=== PATIENT | male | born 1980 | race Caucasian/White ===

== ENCOUNTER 2016-09-16 12:39 | Emergency (ER) | payer MEDICAID ==
[2016-09-16] MEDS ORDERED: RABIES VACCINE (PCEC)/PF 2.5 UNIT/1 ML KIT IM ONE (13:11)
[2016-09-16] MEDS ORDERED: RABIES IMMUNE GLOBULIN INJ/PF 300 UNIT/2 ML SDV IM ONE (13:11)
[2016-09-16] MEDS ORDERED: AMOXICILLIN TR/POT CLAVULANATE 500-125 MG TAB PO ONE (13:12)
--- NOTE | 2016-09-16 13:46 | ER Document Report ---
ED Animal Bite - General Chief Complaint: Dog Bite Stated Complaint: DOG BITE Time Seen by Provider: 09/16/16 12:56 Notes: patient is a 36 year old male who presents to the ED after referral from PCP for rabies vaccine. He states he was bit by a dog he was trying to save from the water when he was boating with friends but it bit his upper lip and jumped back into the water. 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 he is requesting rabies vaccination. started on augmentin by his PCP. tetanus is utd TRAVEL OUTSIDE OF THE [place] IN LAST 30 DAYS: No - Related Data Allergies/Adverse Reactions: methylphenidate HCl [From Ritalin] Adverse Reaction (Verified 09/16/16 12:48) Past Medical History - Social History Smoking Status: Current Every Day Smoker Chew tobacco use (# tins/day): No Frequency of alcohol use: None Drug Abuse: None Family History: None Patient has suicidal ideation: No Patient has homicidal ideation: No - Past Medical History Cardiac Medical History: Denies: Hx Coronary Artery Disease, Hx Heart Attack, Hx Hypertension Pulmonary Medical History: Denies: Hx Asthma, Hx Bronchitis, Hx COPD, Hx Pneumonia Neurological Medical History: Denies: Hx Cerebrovascular Accident, Hx Seizures Renal/ Medical History: Denies: Hx Peritoneal Dialysis Musculoskeltal Medical History: Denies Hx Arthritis - Immunizations Hx Diphtheria, Pertussis, Tetanus Vaccination: Yes Review of Systems - Review of Systems Constitutional: No symptoms reported Skin: See HPI -: Yes All other systems reviewed and negative Physical Exam - Vital signs Vitals: Temp Pulse Resp BP Pulse Ox 97.9 F 86 16 123/81 99 09/16/16 12:48 09/16/16 12:48 09/16/16 12:48 09/16/16 12:48 09/16/16 12:48 - Extremities General upper extremity: Normal inspection, Nontender, Normal color, Normal ROM , Normal strength, Normal temperature General lower extremity: Normal inspection, Nontender, Normal color, Normal ROM , Normal strength, Normal temperature, Normal weight bearing - Neurological Neuro grossly intact: Yes Cognition: Normal Orientation: AAOx4 [place] Coma Scale Eye Opening: Spontaneous [place] Coma Scale Verbal: Oriented [place] Coma Scale Motor: Obeys Commands [place] Coma Scale Total: 15 Speech: Normal - Skin Skin Temperature: Warm Skin Moisture: Dry Skin Color: Ashen Skin Turgor: Elastic Skin irregularity: Laceration - left upper lip and one puncture wound of the lip. bleeding controlled Course - Re-evaluation Re-evalutation: 09/16/16 14:21 Patient is a 36-year-old male who is hemodynamic stable, no acute distress afebrile. Wounds cleaned with chloraprep at the bedside. Patient has received rabies immunoglobulin and rabies vaccine per protocol. Patient to return in 3 days according to protocol. Patient is agreeable with plan. Patient to start Augmentin and follow-up with his primary care as needed - Vital Signs Vital signs: Temp Pulse Resp BP Pulse Ox 97.9 F 86 16 123/81 99 09/16/16 12:48 09/16/16 12:48 09/16/16 12:48 09/16/16 12:48 09/16/16 12:48 Discharge - Discharge Clinical Impression: Dog bite Qualifiers: Encounter type: initial encounter Qualified Code(s): W54.0XXA - Bitten by dog, initial encounter Condition: Good Disposition: HOME, SELF-CARE Instructions: Animal Bites ([facility]), Rabies Prophyllaxis ([facility]) Additional Instructions: Be sure to follow-up on September 19 and dates as listed on your rabies vaccine sheet attached to your instructions to complete your course of vaccinations Referrals: JAHAIRA SPRAGUE DO [NO LOCAL MD] - Follow up as needed
[2016-09-16] MEDS ORDERED: KETOROLAC TROMETHAMINE INJ/PF 30 MG/1 ML SDV IM ONE (13:49)
[2016-09-16 14:39] VITALS: BP 124/82
== END 2016-09-16 14:39 | disposition home or self-care (01) ==
LOC: ER 12:39
DX: S01.551A Open bite of lip, initial encounter (principal); W54.0XXA Bitten by dog, initial encounter; Y93.19 Activity, other involving water and watercraft; Z20.3 Contact with and (suspected) exposure to rabies; F17.200 Nicotine dependence, unspecified, uncomplicated
CPT/HCPCS: 99283; 96372; 90471; 90675; 90376; J3490; J1885

== ENCOUNTER 2017-09-30 13:29 | Emergency (ER) | payer MEDICAID ==
[2017-09-30 13:42] VITALS: BP 118/87
--- NOTE | 2017-09-30 14:42 | RADIOLOGY REPORT (SQ) ---
EXAM DESCRIPTION: L SPINE WHOLE COMPLETED DATE/TIME: 09/30/2017 2:28 pm REASON FOR STUDY: lower back pain COMPARISON: None. NUMBER OF VIEWS: Five views including obliques. TECHNIQUE: AP, lateral, oblique, and sacral radiographic images acquired of the lumbar spine. LIMITATIONS: None. FINDINGS: MINERALIZATION: Normal. SEGMENTATION: Normal. No transitional anatomy. ALIGNMENT: Normal. VERTEBRAE: There is an acute anterior wedge compression fracture of the L1 vertebral body with approx imately 25% height loss of the anterior aspect of the vertebral body. No definite extension into the posterior elements is appreciated. No other acute fractures appreciated. DISCS: Preserved height. No significant osteophytes or end plate irregularity. POSTERIOR ELEMENTS: Pedicles and facets are intact. No pars defect or posterior arch defects. HARDWARE: None in the spine. PARASPINAL SOFT TISSUES: Normal. PELVIS: Intact as visualized. No fractures or worrisome bone lesions. SI joints intact. OTHER: No other significant finding. IMPRESSION: Acute anterior wedge compression fracture of L1 vertebral body with approximately 25% he ight loss of the anterior vertebral body. TECHNICAL DOCUMENTATION: JOB ID: [id number]- All Rights Reserved Reading location - IP/workstation name: [email or web address]
--- NOTE | 2017-09-30 15:12 | ER Document Report ---
ED General - General Chief Complaint: Low Back Pain Stated Complaint: LOW BACK PAIN Time Seen by Provider: 09/30/17 14:37 Notes: 37-year-old male presents emergency department complaining of back pain after jumping a trampoline park today and falling and landing wrong. Family member reports that he slammed his knee into his head. Denies numbness, tingling, weakness, loss of bowel or bladder function, difficulty walking beyond pain. Denies loss of consciousness or vomiting. Denies taking blood thinners. Rates his back pain is severe. TRAVEL OUTSIDE OF THE [place] IN LAST 30 DAYS: No - Related Data Allergies/Adverse Reactions: methylphenidate HCl [From Ritalin] Adverse Reaction (Verified 09/30/17 13:29) Past Medical History - General Information source: Patient - Social History Smoking Status: Unknown if Ever Smoked Family History: None - Past Medical History Cardiac Medical History: Denies: Hx Coronary Artery Disease, Hx Heart Attack, Hx Hypertension Pulmonary Medical History: Denies: Hx Asthma, Hx Bronchitis, Hx COPD, Hx Pneumonia Neurological Medical History: Denies: Hx Cerebrovascular Accident, Hx Seizures Renal/ Medical History: Denies: Hx Peritoneal Dialysis Musculoskeletal Medical History: Denies Hx Arthritis - Immunizations Hx Diphtheria, Pertussis, Tetanus Vaccination: Yes Review of Systems - Review of Systems Constitutional: No symptoms reported Gastrointestinal: No symptoms reported Genitourinary: No symptoms reported Musculoskeletal: See HPI, Back pain Neurological/Psychological: No symptoms reported Physical Exam - Vital signs Vitals: Temp Pulse Resp BP Pulse Ox 97.5 F 91 20 118/87 H 100 09/30/17 13:41 09/30/17 13:41 09/30/17 13:41 09/30/17 13:41 09/30/17 13:41 Interpretation: Normal - Notes Notes: GENERAL: Awake, lying his right-hand side in the bed, appears quite annoyed. HEAD: Normocephalic, atraumatic EYES: Pupils equal, round. ENT: Oral mucosa moist. NECK: trachea midline. LUNGS: no respiratory distress. NEUROLOGICAL: Alert, normal speech, no facial droop. PSYCH: Angry. Refused further examination, refused to allow me to examine his spine. Course - Re-evaluation Re-evalutation: 09/30/17 15:17 Patient initially seen by nurse practitioner Michelle Franco, refused most of the examination for her as well, states that he feels he has been mistreated here and that he is in danger of he states here any longer because he was allowed to sit first in a wheelchair and then he laid himself down on the floor in the internal waiting room until room was available. Ms. Franco did order lumbar spine films which revealed a 25% loss of height of the L1 vertebrae, anterior compression fracture wedge type. Ms. Franco informed me that the patient was quite angry and was refusing to see her anymore, at this point I went in and attempted to speak with the patient , explained to him exactly what the compression fracture movement, asked for permission to examine him which he refused. Patient refused to give me any further history, patient demanded to be transferred to another hospital within the next 20 minutes which I explained them would not be possible. I told him that I could either call another hospital to try and arrange transfer but it was very unlikely that we would have an ambulance here to transport him within the next 20 minutes or I could continue his evaluation and treatment or he could choose to leave without completing his evaluation and be seen in another hospital if he wanted. I did offer the patient pain medication in the form of Percocet and Robaxin to help control the pain from this fracture and to facilitate the rest of examination. Patient states that he does not want to accept anything at all from this hospital including any narcotics or any other medications that could make it possible to "misconstrue anything that I say". Various family members asked him to stay and either should or arrange his transfer however the patient stated that he was "going to [facility] out of this hospital in the next few minutes" and he did not have to stay here any longer. I told the patient that I would complete his discharge instructions and include referrals to appropriate resources including orthospine and Dr. Luis Perez from pain management who could perhaps perform a kyphoplasty although it is rarely performed for a 25% loss of height. Patient then left without his discharge instructions. - Vital Signs Vital signs: Temp Pulse Resp BP Pulse Ox 97.5 F 91 20 118/87 H 100 09/30/17 13:41 09/30/17 13:41 09/30/17 13:41 09/30/17 13:41 09/30/17 13:41 Discharge - Discharge Clinical Impression: Closed compression fracture of L1 lumbar vertebra Qualifiers: Encounter type: initial encounter Qualified Code(s): S32.010A - Wedge compression fracture of first lumbar vertebra, initial encounter for closed fracture Condition: Stable Disposition: HOME, SELF-CARE Additional Instructions: Compression Fracture of the Spine A vertebra within your spine has been crushed. This is called a "compression fracture." Typically, this type of injury is caused by a sudden bending or compressing force such as an auto accident or a fall. Although painful, the fracture is not serious. You can expect to recover fully within a few weeks. The treatment of this fracture is essentially the same as for a severe back strain. Muscle relaxers or antiinflammatory medication may be prescribed. You should rest in bed for a few days until the pain eases, then begin light activity. A re-check will determine when you are ready to resume work or sports. Ice pack the painful area at first. After you are active again, you may want to apply gentle heat intermittently to relax sore muscles. You can continue with ice packs if you find them helpful in reducing muscle pain. Call the doctor or return at once if you develop radiating pains, muscle weakness, problems with the bladder or bowels, or numbness. Referrals: LUIS PEREZ MD [ACTIVE STAFF] - Follow up as needed
== END 2017-09-30 15:21 | disposition home or self-care (01) ==
LOC: ER 13:29
DX: S32.010A Wedge compression fracture of first lumbar vertebra, initial encounter for closed fracture (principal); X58.XXXA Exposure to other specified factors, initial encounter; Y93.44 Activity, trampolining; Y92.838 Other recreation area as the place of occurrence of the external cause
CPT/HCPCS: 72110; 99284

== ENCOUNTER 2018-02-23 11:41 | Observation (INO) | payer SELFPAY ==
[2018-02-23] MEDS ORDERED: HYDROMORPHONE HCL INJ/PF 2 MG/ML AMPULE IV ONE ×2 (12:27→14:27)
--- NOTE | 2018-02-23 12:34 | ER Document Report ---
ED Extremity Problem, Lower - General Mode of Arrival: Medic Information source: Patient TRAVEL OUTSIDE OF THE [place] IN LAST 30 DAYS: No - General Chief Complaint: Leg Injury Stated Complaint: LEG DEFORMITY Time Seen by Provider: 02/23/18 12:18 Notes: Patient is a 37-year-old male who presents with injury and deformity to his left lower extremity. Patient reports that he tripped over a tree, landing into a ditch when a another large tree limb fell and pain to his left leg. Patient was given a total of 200 mcg of fentanyl by EMS. Pulses motor and sensation are intact. (JAVIER RICHARDS) Upon arrival to the ED the patient was screaming in pain, pain was severe to the left leg, constant and throbbing. Injury occurred about 15-20 minutes prior to ED arrival. (CONCHA CASTELLANOS) - Related Data Allergies/Adverse Reactions: methylphenidate HCl [From Ritalin] Adverse Reaction (Verified 09/30/17 13:29) Past Medical History - General Information source: Patient - Social History Smoking Status: Never Smoker Chew tobacco use (# tins/day): No Frequency of alcohol use: None Drug Abuse: Marijuana Family History: None Patient has suicidal ideation: No Patient has homicidal ideation: No - Medical History Medical History: Negative - Past Medical History Cardiac Medical History: Denies: Hx Coronary Artery Disease, Hx Heart Attack, Hx Hypertension Pulmonary Medical History: Denies: Hx Asthma, Hx Bronchitis, Hx COPD, Hx Pneumonia Neurological Medical History: Denies: Hx Cerebrovascular Accident, Hx Seizures Renal/ Medical History: Denies: Hx Peritoneal Dialysis Musculoskeletal Medical History: Denies Hx Arthritis Surgical Hx: Negative - Immunizations Hx Diphtheria, Pertussis, Tetanus Vaccination: Yes Review of Systems - Review of Systems Musculoskeletal: Deformity - LLE, Leg swelling Physical Exam - Vital signs Vitals: Temp Pulse Resp BP Pulse Ox 97.9 F 59 L 18 113/68 99 02/23/18 11:50 02/23/18 11:50 02/23/18 11:50 02/23/18 11:50 02/23/18 11:50 - Notes Notes: PHYSICAL EXAMINATION: GENERAL: Well-appearing, well-nourished and in moderate distress. HEAD: Atraumatic, normocephalic. EYES: Pupils equal round and reactive to light, extraocular movements intact, sclera anicteric, conjunctiva are normal. ENT: Nares patent, oropharynx clear without exudates. Moist mucous membranes. NECK: Normal range of motion, supple without lymphadenopathy LUNGS: Breath sounds clear to auscultation bilaterally and equal. No wheezes rales or rhonchi. HEART: Regular rate and rhythm without murmurs ABDOMEN: Soft, nontender, nondistended abdomen. No guarding, no rebound. No masses appreciated. Musculoskeletal: Normal range of motion, no pitting or edema. No cyanosis. Obvious deformity noted to left lower extremity. Dorsalis pedis pulse present distal to injury, normal cap refill, normal motor and sensation distal to injury. Splint in place. NEUROLOGICAL: Cranial nerves grossly intact. Normal speech, normal gait. Normal sensory, motor exams PSYCH: Normal mood, normal affect. SKIN: Warm, Dry, normal turgor, no rashes or lesions noted. (JAVIER RICHARDS) Course - Re-evaluation Re-evalutation: X-ray reveals a transverse comminuted and slightly displaced fracture of the mid tibia and fibular diaphysis. Additional fracture noted to the distal tibial diaphysis. Patient medicated with IV Dilaudid. Normal pulses sensation and motor distal to injury. Will consult orthopedic surgeon for admission. 02/23/18 12:37 Called and spoke with Dr. Martinez, orthopedist who agrees to admit patient to his service. Patient has spouse updated on plan of care. Patient reports pain is tolerable now after administration of Dilaudid 1 mg IV. Pulses motor and sensation remain intact. Splint remains intact. (JAIVER RICHARDS) - Vital Signs Vital signs: Temp Pulse Resp BP Pulse Ox 98.5 F 80 14 145/85 H 95 02/24/18 09:53 02/24/18 10:38 02/24/18 10:38 02/24/18 10:38 02/24/18 10:38 Discharge - Discharge Admitting Provider: Orthopedics, Dr. Martinez Unit Admitted: Medical Floor - Discharge Clinical Impression: Tibia fracture Qualifiers: Encounter type: initial encounter Tibia location: shaft Fracture type: closed Fracture morphology: segmental Fracture alignment: nondisplaced Laterality: left Qualified Code(s): S82.265A - Nondisplaced segmental fracture of shaft of left tibia, initial encounter for closed fracture Fibula fracture Qualifiers: Encounter type: initial encounter Fibula location: shaft Fracture type: closed Fracture morphology: segmental Fracture alignment: displaced Laterality: left Qualified Code(s): S82.462A - Displaced segmental fracture of shaft of left fibula, initial encounter for closed fracture Condition: Stable Disposition: ADMITTED INPATIENT
--- NOTE | 2018-02-23 12:52 | RADIOLOGY REPORT (SQ) ---
EXAM DESCRIPTION: TIBIA FIBULA LEFT COMPLETED DATE/TIME: 02/23/2018 12:27 pm REASON FOR STUDY: obvious deformity COMPARISON: None. NUMBER OF VIEWS: Two views. TECHNIQUE: Two radiographic images acquired of the left tibia and fibula to include the knee and ank le in at least one projection. LIMITATIONS: None. FINDINGS: MINERALIZATION: Normal. BONES: There are transverse, comminuted and slightly fractures of the mid tibial and fibular diaphyse s. There are additional fracture components of the distal tibial diaphysis. SOFT TISSUES: No obvious swelling or foreign body. OTHER: No other significant finding. IMPRESSION: There are transverse, comminuted and slightly fractures of the mid left tibial and fibul ar diaphyses. There are additional fracture components of the distal tibial diaphysis. TECHNICAL DOCUMENTATION: JOB ID: [id number] [employer]- All Rights Reserved Reading location - IP/workstation name: [email or web address]
--- NOTE | 2018-02-23 13:17 | RADIOLOGY REPORT (SQ) ---
EXAM DESCRIPTION: ANKLE LEFT COMPLETE COMPLETED DATE/TIME: 02/23/2018 1:06 pm REASON FOR STUDY: pain s/p fall COMPARISON: None. NUMBER OF VIEWS: Three views. TECHNIQUE: AP, lateral, and oblique radiographic images acquired of the left ankle. LIMITATIONS: None. FINDINGS: MINERALIZATION: Normal. BONES: No fracture or dislocation of the left ankle. Fracture of the distal tibia and partially imag ed fracture of the mid fibula better seen on dedicated radiographs of the lower leg. JOINTS: No effusions. SOFT TISSUES: No soft tissue swelling. No foreign body. OTHER: No other significant finding. IMPRESSION: No fracture or dislocation of the left ankle. Fracture of the distal tibia and partiall y imaged fracture of the mid fibula better seen on dedicated radiographs of the lower leg. TECHNICAL DOCUMENTATION: JOB ID: [id number] [employer]- All Rights Reserved Reading location - IP/workstation name: [email or web address]
[2018-02-23] MEDS: MORPHINE SULFATE 10 MG/ML INJ IV PRN ×3 (15:49→23:14)
[2018-02-23] MEDS ORDERED: ONDANSETRON 4 MG TAB.RAPDIS PO PRN (18:19)
[2018-02-23] MEDS ORDERED: ZOLPIDEM TARTRATE 5 MG TABLET PO PRN (18:21)
[2018-02-23] MEDS: RINGERS SOLUTION,LACTATED 1,000 ML IV PRN (23:11)
[2018-02-24] MEDS: MORPHINE SULFATE 10 MG/ML INJ IV PRN ×2 (04:15→06:48)
[2018-02-24] MEDS ORDERED: CEFAZOLIN 2 GM/D5W RTU 2 GM/50 ML RTUPB IV PRN (05:00)
[2018-02-24] MEDS ORDERED: TRANEXAMIC ACID INJ/PF 1,000 MG/10 ML SDV IV PRN (05:00)
[2018-02-24] MEDS ORDERED: ONDANSETRON HCL INJ/PF 4 MG/2 ML SDV ONE (07:21)
[2018-02-24] MEDS ORDERED: FENTANYL CITRATE INJ/PF 100 MCG/2 ML AMPUL ONE (07:21)
[2018-02-24] MEDS ORDERED: ACETAMINOPHEN 1,000 MG/100 ML RTUPB IV ONE (07:21)
[2018-02-24] MEDS ORDERED: DEXAMETHASONE SOD PHOSPHATE INJ 4 MG/1 ML VIAL ONE (07:21)
[2018-02-24] MEDS ORDERED: MIDAZOLAM 2 MG/2 ML INJ ONE (07:21)
[2018-02-24] MEDS ORDERED: PROPOFOL INJ 200 MG/20 ML VIAL IV ONE (07:21)
[2018-02-24] MEDS ORDERED: HYDROMORPHONE HCL INJ/PF 2 MG/ML AMPULE ONE ×3 (07:21→10:45)
[2018-02-24] MEDS ORDERED: CEFAZOLIN INJ 1 GM VIAL ONE (08:08)
[2018-02-24] MEDS ORDERED: TRANEXAMIC ACID INJ/PF 1,000 MG/10 ML SDV IV ONE (08:10)
[2018-02-24] MEDS ORDERED: FENTANYL CITRATE INJ/PF 100 MCG/2 ML AMPUL IV PRN ×3 (08:45)
[2018-02-24] MEDS ORDERED: PROMETHAZINE HCL INJ 25 MG/1 ML VIAL IV PRN (08:45)
[2018-02-24] MEDS ORDERED: ONDANSETRON HCL INJ/PF 4 MG/2 ML SDV IV PRN (08:45)
[2018-02-24] MEDS ORDERED: MORPHINE SULFATE 10 MG/ML INJ IV PRN (08:45)
--- NOTE | 2018-02-24 09:41 | Operative Report ---
Operative Report DATE OF SURGERY: 02/24/18 PREOPERATIVE DIAGNOSIS: Left tibia fracture OPERATION: Open reduction internal fixation left tibia fracture SURGEON: BEV CLEMENTS ANESTHESIA: GA ESTIMATED BLOOD LOSS: 50 PROCEDURE: With the patient supine on the operative table left lower extremities prepped and draped in sterile fashion. Limb is elevated for exsanguination tourniquet inflated 250 torr. Longitudinal incision was made along the medial aspect of the patellar tendon. Sharp dissection was carried incision down to the proximal tibia. A pin is placed through the proximal tibial cortex and a combined reamer was used to fashion a cortical opening. This is removed. A ball-tipped guide estuardo was placed down the tibia. Length is measured to be 360 mm. Subsequently flexible reamers were passed beginning with a 9 mm reamer and ending with an 11 mm reamer. Subsequent a [employer] titanium tibial nail 360 mm x 10 mm is passed over the ball-tipped guide estuardo. It secured proximally with 1 screw and distally with 1 screw. Hardware placement fracture reduction and check fluoroscopically and felt to be adequate. The tourniquet was deflated. Hemostasis obtained with electrocautery. The wounds irrigated bulb lavage. The closure is interrupted Vicryl followed by nik. A sterile compressive dressing is applied and the patient's return to PACU in satisfactory condition.
[2018-02-24] MEDS ORDERED: OXYCODONE HCL IR 5 MG TABLET PO PRN (09:56)
[2018-02-24] MEDS ORDERED: (PENDING PHARMACY ID) (Dextroamphetamine/Amphetamine [Adderall 20 Mg Tablet] 20 MG) PO SCH (10:00)
[2018-02-24] MEDS ORDERED: ESCITALOPRAM OXALATE 10 MG TABLET PO SCH (10:00)
[2018-02-24] MEDS: FENTANYL CITRATE INJ/PF 100 MCG/2 ML AMPUL ONE ×2 (10:03→10:08)
[2018-02-24] MEDS ORDERED: SUCCINYLCHOLINE CHLORIDE INJ 200 MG/10 ML VIAL ONE (11:04)
[2018-02-24] MEDS ORDERED: (PENDING PHARMACY ID) (Dextroamphetamine/Amphetamine [Adderall 20 Mg Tablet] 10 MG) PO SCH (12:00)
[2018-02-24] MEDS: RINGERS SOLUTION,LACTATED 1,000 ML IV PRN (12:34)
[2018-02-24 13:50] VITALS: BP 112/69
--- NOTE | 2018-02-24 22:24 | RADIOLOGY REPORT (SQ) ---
EXAM DESCRIPTION: XR TIBIA FIBULA 2 VIEWS COMPLETED DATE/TME: 02/24/2018 00:00 CLINICAL HISTORY: 37 years, Male, IM NAILING LEFT TIB COMPARISON: Prior plain films from the same date NUMBER OF VIEWS: 4 TECHNIQUE: 4 intraoperative images of the tibia/fibula on the left were obtained. LIMITATIONS: None. FINDINGS: Intraoperative intramedullary estuardo and gamma nail placement. Correlate with intraoperative findings. IMPRESSION: Selective intraoperative images. Correlate with intraoperative findings. copyright 2010 [employer]- All Rights Reserved
--- NOTE | 2018-02-28 08:37 | PDOC DISCHARGE SUMMARY ---
General - Admit/Disc Date/PCP Admission Date/Primary Care Provider: 02/23/18 14:24 Discharge Date: 02/24/18 - Discharge Diagnosis (1) Tibia fracture Is this a current diagnosis for this admission?: Yes - Additional Information Resuscitation Status: Full Code Discharge Diet: As Tolerated, Regular Discharge Activity: Activity As Tolerated, No Driving, Keep Legs Elevated, Slowly Increase Activity, No tub bath Home Medications: Dextroamphetamine/Amphetamine [Adderall 20 mg Tablet] 10 mg PO NOON 02/23/18 Dextroamphetamine/Amphetamine [Adderall 20 mg Tablet] 20 mg PO DAILY 02/23/18 Escitalopram Oxalate [Lexapro 10 mg Tablet] 10 mg PO DAILY 02/23/18 History of Present Illness History of Present Illness: RENZO CHUN is a 37 year old male Patient is a 37-year-old white male who presents emergency room with trauma to the left lower extremity and a nondisplaced left diaphyseal tib-fib fracture. Hospital Course Hospital Course: The patient is admitted to the orthopedic service for fracture management. He is taken to the operating room the subsequent day and undergoes an intramedullary nailing which is uncomplicated. He is returned to floor on night touchdown weightbearing restriction on the left lower extremity. Physical Exam Vital Signs: Temp Pulse Resp BP Pulse Ox 36.6 C 65 16 112/69 97 02/24/18 13:44 02/24/18 13:44 02/24/18 13:44 02/24/18 13:44 02/24/18 13:44 General appearance: PRESENT: no acute distress, mild distress, thin Head exam: PRESENT: normocephalic Respiratory exam: PRESENT: unlabored Cardiovascular exam: PRESENT: RRR Pulses: PRESENT: +1 pedal pulses bilateral Vascular exam: PRESENT: normal capillary refill GI/Abdominal exam: PRESENT: soft Rectal exam: PRESENT: deferred Musculoskeletal exam: PRESENT: other - Patient has swelling tenderness and instability at the midportion of the left tibia. Neurological exam: PRESENT: alert, awake, oriented to person, oriented to place, oriented to time, oriented to situation. ABSENT: motor sensory deficit Psychiatric exam: PRESENT: appropriate affect, normal mood. ABSENT: homicidal ideation, suicidal ideation Skin exam: PRESENT: dry, intact, warm. ABSENT: cyanosis, rash Results Impressions: Ankle X-Ray 02/23/18 12:36 IMPRESSION: No fracture or dislocation of the left ankle. Fracture of the distal tibia and partially imaged fracture of the mid fibula better seen on dedicated radiographs of the lower leg. Tibia/Fibula X-Ray 02/24/18 00:00 IMPRESSION: Selective intraoperative images. Correlate with intraoperative findings. copyright 2010 [employer]- All Rights Reserved Status: Imported from PACS Qualifiers - * PATIENT BEING DISCHARGED WITH ANY OF THE FOLLOWING DIAGNOSIS: No VTE patient discharged on overlapping Therapy?: No Reason(s) for not prescribing Overlap Therapy:: Not indicated Plan Discharge Plan: Patient be discharged home with home health services and DME. Follow-up with Dr. Michelle Zapata Vandemere for surgery in 2 weeks for staple removal. Time Spent: Less than 30 Minutes
== END 2018-02-24 14:36 | disposition home or self-care (01) ==
LOC: ER 11:41 → EH 14:24 → INTOOBSV 14:24 → 4N 17:21
PROVIDERS: ADMIT Orthopaedic Surgery; ATTEND Orthopaedic Surgery
PROC: 0QSH04Z Reposition Left Tibia with Internal Fixation Device, Open Approach (ICD-10-PCS; principal; 2018-02-24 08:00)
DX: S82.302A Unspecified fracture of lower end of left tibia, initial encounter for closed fracture (principal); X58.XXXA Exposure to other specified factors, initial encounter
CPT/HCPCS: 99284; 96374; 73610; 73590 ×2; 27827; G0378 ×3; C1713 ×3; C1769; J2250; J0690; J1100; J3010; J2270 ×2; J1170 ×2; J0330; J2405; J7120 ×2; J2704; J0131; J3490; 01480

== ENCOUNTER 2018-04-23 14:10 | Emergency (ER) | payer SELFPAY ==
[2018-04-23] MEDS ORDERED: NORMAL SALINE 1000 ML 1,000 ML IV ONE (15:42)
[2018-04-23] MEDS ORDERED: KETOROLAC TROMETHAMINE INJ/PF 30 MG/1 ML SDV IV ONE (15:42)
--- NOTE | 2018-04-23 15:44 | ER Document Report ---
ED Medical Screen (RME) - General Chief Complaint: Abdominal Pain Stated Complaint: SIDE PAIN,FEVER Time Seen by Provider: 04/23/18 15:38 Mode of Arrival: Ambulatory Information source: Patient Notes: 38-year-old male presents emergency department with complaints of left flank pain that started yesterday. He states that it is a sharp and stabbing sensation that starts in the left flank with radiation into the left lower quadrant. Patient denies any alleviating or exacerbating factors. He states that he has had decreased urine output in the urine that he has made has been very dark in color with possible blood in it. He denies any fever, chills, nausea, vomiting, diarrhea, constipation, penile discharge, testicular pain. Patient denies a history of kidney stones. I have greeted and performed a rapid initial assessment of this patient. A comprehensive ED assessment and evaluation of the patient, analysis of test results and completion of the medical decision making process will be conducted by additional ED providers. PHYSICAL EXAMINATION: GENERAL: Well-appearing, well-nourished and in no acute distress. HEAD: Atraumatic, normocephalic. EYES: Pupils equal round extraocular movements intact, conjunctiva are normal. ENT: Nares patent NECK: Normal range of motion LUNGS: No respiratory distress Musculoskeletal: Normal range of motion. No CVA tenderness. TRAVEL OUTSIDE OF THE [place] IN LAST 30 DAYS: No - Related Data Allergies/Adverse Reactions: methylphenidate HCl [From Ritalin] Adverse Reaction (Verified 09/30/17 13:29) Past Medical History - Social History Chew tobacco use (# tins/day): No Frequency of alcohol use: None Drug Abuse: Marijuana - Past Medical History Cardiac Medical History: Denies: Hx Coronary Artery Disease, Hx Heart Attack, Hx Hypertension Pulmonary Medical History: Denies: Hx Asthma, Hx Bronchitis, Hx COPD, Hx Pneumonia Neurological Medical History: Denies: Hx Cerebrovascular Accident, Hx Seizures Renal/ Medical History: Denies: Hx Peritoneal Dialysis Musculoskeltal Medical History: Denies Hx Arthritis Psychiatric Medical History: Reports: Hx Attention Deficit Hyperactivity Disorder Past Surgical History: Reports: Hx Orthopedic Surgery - L leg - Immunizations Hx Diphtheria, Pertussis, Tetanus Vaccination: Yes Physical Exam - Vital signs Vitals: Temp Pulse Resp BP Pulse Ox 97.3 F 65 16 132/80 H 100 04/23/18 14:17 04/23/18 14:17 04/23/18 14:17 04/23/18 14:17 04/23/18 14:17 Course - Vital Signs Vital signs: Temp Pulse Resp BP Pulse Ox 97.3 F 65 16 132/80 H 100 04/23/18 14:17 04/23/18 14:17 04/23/18 14:17 04/23/18 14:17 04/23/18 14:17
[2018-04-23 15:54] LABS: APPEARANCE,URINE CLOUDY; BILIRUBIN,URINE NEGATIVE (NEGATIVE); CALCIUM OXALATE CRYSTALS,URINE RARE /HPF; COLOR,URINE AMBER; GLUCOSE, URINE NEGATIVE (NEGATIVE); KETONES,URINE NEGATIVE (NEGATIVE); LEUKOCYTE ESTERASE,URINE TRACE (NEGATIVE); NITRITE,URINE NEGATIVE (NEGATIVE); PROTEIN,URINE 30 mg/dL (NEGATIVE); URINE SPECIFIC GRAVITY 1.014
[2018-04-23 16:29] LABS: ABSOLUTE LYMPHOCYTES (AUTO) 1.3 10^3/uL (0.5-4.7); ABSOLUTE MONOCYTES (AUTO) 0.8 10^3/uL (0.1-1.4); ABSOLUTE NEUT (AUTO) 11.7 10^3/uL (1.7-8.2); BASOPHILS % (AUTO) 0.2 % (0-2); EOSINOPHILS % (AUTO) 0.1 % (0-6); HEMATOCRIT 41.3 % (37.9-51.0); HEMOGLOBIN 13.9 g/dL (13.5-17.0); LYMPHOCYTES % (AUTO) 9.1 % (13-45); MEAN CORPUSCULAR HEMOGLOBIN 27.7 pg (27.0-33.4); MEAN CORPUSCULAR HGB CONC 33.7 g/dL (32.0-36.0); MEAN CORPUSCULAR VOLUME 82 fl (80-97); MONOCYTES % (AUTO) 5.6 % (3-13); PLATELET COUNT 258 10^3/uL (150-450); RED BLOOD COUNT 5.01 10^6/uL (4.35-5.55); RED CELL DISTRIBUTION WIDTH 13.8 % (11.5-14.0); TOTAL CELLS COUNTED % (AUTO) 100 %; WHITE BLOOD COUNT 13.8 10^3/uL (4.0-10.5)
[2018-04-23 16:43] LABS: ALANINE AMINOTRANSFERASE 13 U/L (21-72); ALBUMIN 5.1 g/dL (3.5-5.0); ALKALINE PHOSPHATASE 114 U/L (38-126); ANION GAP 10 (5-19); ASPARTATE AMINO TRANSFERASE 23 U/L (17-59); BILIRUBIN,DIRECT 0.3 mg/dL (0.0-0.4); BILIRUBIN,TOTAL 0.5 mg/dL (0.2-1.3); BLOOD UREA NITROGEN 11 mg/dL (7-20); CALCIUM 11.7 mg/dL (8.4-10.2); CARBON DIOXIDE 30 mmol/L (22-30); CHLORIDE 102 mmol/L (98-107); GLUCOSE 82 mg/dL (75-110); POTASSIUM 4.3 mmol/L (3.6-5.0); SODIUM 142.4 mmol/L (137-145); TOTAL PROTEIN 8.3 g/dL (6.3-8.2)
--- NOTE | 2018-04-23 16:51 | ER Document Report ---
ED General - General Chief Complaint: Abdominal Pain Stated Complaint: SIDE PAIN,FEVER Time Seen by Provider: 04/23/18 15:38 Primary Care Provider: [facility] [Provider Group] - Follow up as needed Mode of Arrival: Ambulatory Notes: Patient is a 38-year-old male that presents to the emergency department for chief complaint of left flank and groin pain. Patient states that yesterday he had some stomach cramping, thought it would go away and then today he had severe pain while he was at work on the left flank, radiating towards the groin that was constant in nature, rated the pain as a 7 out of 10. Describes as a sharp stabbing sensation. He said urinary frequency, his urine appeared to be darker and possibly bloody earlier as well. Denies history of kidney stones in the past. Denies any fevers, chills, night sweats, vomiting, dysuria, diarrhea, chest pain, shortness of breath or difficulty breathing. No other complaints at this time. Past Medical History: Denies chronic medical conditions Past Surgical History: Denies surgical history Social History: Admits to smoking cigarettes on occasion, denies alcohol or drug use. Family History: Reviewed and noncontributory for presenting illness Allergies: Reviewed, see documented allergy list. REVIEW OF SYSTEMS: Other than noted above, the 12 point review of systems was reviewed with the patient and were negative, all pertinent findings are included in the HPI. PHYSICAL EXAMINATION: Vital signs reviewed, nursing noted reviewed. GENERAL: Well-appearing, well-nourished and in no acute distress. HEAD: Atraumatic, normocephalic. EYES: Eyes appear normal, extraocular movements intact, sclera anicteric, conjunctiva are normal. ENT: nares patent, oropharynx clear without exudates. Moist mucous membranes. NECK: Normal range of motion, supple without lymphadenopathy LUNGS: Breath sounds clear to auscultation bilaterally and equal. No wheezes rales or rhonchi. HEART: Regular rate and rhythm without murmurs ABDOMEN: Soft, mild left CVA tenderness and left lower abdominal tenderness, normoactive bowel sounds. No rebound, guarding, or rigidity. No masses appreciated. EXTREMITIES: Nontender, good range of motion, no pitting or edema. NEUROLOGICAL: No focal neurological deficits. Moves all extremities spontaneously Motor and sensory grossly intact on exam. PSYCH: Normal mood, normal affect. SKIN: Warm, Dry, normal turgor, no rashes or lesions noted on exposed skin TRAVEL OUTSIDE OF THE [place] IN LAST 30 DAYS: No - Related Data Allergies/Adverse Reactions: methylphenidate HCl [From Ritalin] Adverse Reaction (Verified 09/30/17 13:29) Past Medical History - General Information source: Patient - Social History Smoking Status: Never Smoker Chew tobacco use (# tins/day): No Frequency of alcohol use: None Drug Abuse: Marijuana Family History: None Patient has suicidal ideation: No Patient has homicidal ideation: No - Past Medical History Cardiac Medical History: Denies: Hx Coronary Artery Disease, Hx Heart Attack, Hx Hypertension Pulmonary Medical History: Denies: Hx Asthma, Hx Bronchitis, Hx COPD, Hx Pneumonia Neurological Medical History: Denies: Hx Cerebrovascular Accident, Hx Seizures Renal/ Medical History: Denies: Hx Peritoneal Dialysis Musculoskeletal Medical History: Denies Hx Arthritis Psychiatric Medical History: Reports: Hx Attention Deficit Hyperactivity Disorder Past Surgical History: Reports: Hx Orthopedic Surgery - L leg - Immunizations Hx Diphtheria, Pertussis, Tetanus Vaccination: Yes Physical Exam - Vital signs Vitals: Temp Pulse Resp BP Pulse Ox 97.3 F 65 16 132/80 H 100 04/23/18 14:17 04/23/18 14:17 04/23/18 14:17 04/23/18 14:17 04/23/18 14:17 Course - Re-evaluation Re-evalutation: Patient seen and examined vital signs reviewed. Laboratory data and imaging were ordered as appropriate for the patient's presenting symptoms and complaint, with consideration of any critical or life threatening conditions that may be associated with their obtained history and exam as noted above. Patient was treated with IV fluids, Toradol Results were reviewed when available and demonstrated 2 mm distal ureteral stone, with mild hydroureter and hydronephrosis, blood noted in the urine, and mild leukocytosis, without evidence of urinary tract infection. The patient was re-evaluated and was stable Evaluation was most consistent with kidney stone Results were discussed with the patient at this point, after careful consideration I feel that that patient can be discharged from the emergency department, the patient was educated treatments and reasons to return to the emergency department based on their presumed diagnosis as noted above, they were advised to followup with a primary care physician in 2-3 days. Patient was agr eeable to plan of care. *Note is created using voice recognition software and may contain spelling, syntax or grammatical errors. Laboratory 04/23/18 04/23/18 04/23/18 15:30 16:14 16:14 WBC 13.8 H RBC 5.01 Hgb 13.9 Hct 41.3 MCV 82 MCH 27.7 MCHC 33.7 RDW 13.8 Plt Count 258 Seg Neutrophils % 85.0 H Lymphocytes % 9.1 L Monocytes % 5.6 Eosinophils % 0.1 Basophils % 0.2 Absolute Neutrophils 11.7 H Absolute Lymphocytes 1.3 Absolute Monocytes 0.8 Absolute Eosinophils 0.0 Absolute Basophils 0.0 Sodium 142.4 Potassium 4.3 Chloride 102 Carbon Dioxide 30 Anion Gap 10 BUN 11 Creatinine 0.91 Est GFR ( Amer) > 60 Est GFR (Non-Af Amer) > 60 Glucose 82 Calcium 11.7 H Total Bilirubin 0.5 Direct Bilirubin 0.3 Neonat Total Bilirubin Not Reportable Neonat Direct Bilirubin Not Reportable Neonat Indirect Bili Not Reportable AST 23 ALT 13 L Alkaline Phosphatase 114 Total Protein 8.3 H Albumin 5.1 H Urine Color JERAD Urine Appearance CLOUDY Urine pH 5.0 Ur Specific [place] 1.014 Urine Protein 30 H Urine Glucose (UA) NEGATIVE Urine Ketones NEGATIVE Urine Blood LARGE H Urine Nitrite NEGATIVE Urine Bilirubin NEGATIVE Urine Urobilinogen 2.0 H Ur Leukocyte Esterase TRACE H Urine WBC (Auto) 1 Urine RBC (Auto) >182 Urine Bacteria (Auto) TRACE Calcium Oxalate Cr Auto RARE Urine Mucus (Auto) MANY Urine Ascorbic Acid NEGATIVE Abdomen/Pelvis CT 04/23/18 15:41 IMPRESSION: 2 mm calcified stone in the bladder portion of the distal left ureter with mild hydronephrosis - hydroureter. - Vital Signs Vital signs: Temp Pulse Resp BP Pulse Ox 97.8 F 76 18 113/71 100 04/23/18 17:27 04/23/18 17:27 04/23/18 17:27 04/23/18 17:27 04/23/18 17:27 - Laboratory Result Diagrams: 04/23/18 16:14 04/23/18 16:14 Laboratory results interpreted by me: 04/23/18 04/23/18 04/23/18 15:30 16:14 16:14 WBC 13.8 H Seg Neutrophils % 85.0 H Lymphocytes % 9.1 L Absolute Neutrophils 11.7 H Calcium 11.7 H ALT 13 L Total Protein 8.3 H Albumin 5.1 H Urine Protein 30 H Urine Blood LARGE H Urine Urobilinogen 2.0 H Ur Leukocyte Esterase TRACE H Discharge - Discharge Clinical Impression: Kidney stone on left side Hematuria Qualifiers: Hematuria type: unspecified type Qualified Code(s): R31.9 - Hematuria, unspecified Leukocytosis Qualifiers: Leukocytosis type: unspecified Qualified Code(s): D72.829 - Elevated white blood cell count, unspecified Condition: Stable Disposition: HOME, SELF-CARE Instructions: Kidney Stone ([facility]) Additional Instructions: Please take all medications as prescribed, please follow-up with the urologist, if you have persistent symptoms, a list of numbers has been provided below here. [email or web address] [address] [email or web address] [email or web address] [address] If you develop fevers, chills, or worsening pain or symptoms, do not hesitate to return to the emergency department. Prescriptions: Ibuprofen [Motrin 600 Mg Tablet] 600 mg PO TID #15 tablet Tamsulosin HCl [Flomax] 0.4 mg PO DAILY #7 cap.er.[id number] Referrals: [facility] [Provider Group] - Follow up as needed
--- NOTE | 2018-04-23 17:12 | RADIOLOGY REPORT (SQ) ---
EXAM DESCRIPTION: CT ABD/PELVIS NO ORAL OR IV COMPLETED DATE/TIME: 04/23/2018 4:41 pm REASON FOR STUDY: Left flank pain COMPARISON: None. TECHNIQUE: CT scan of the abdomen and pelvis performed without intravenous or oral contrast. Images reviewed with lung, soft tissue, and bone windows. Reconstructed coronal and sagittal MPR images revi ewed. All images stored on PACS. All CT scanners at this facility use dose modulation, iterative reconstruction, and/or weight based d osing when appropriate to reduce radiation dose to as low as reasonably achievable (ALARA). [facility]: Dose Right [facility]: CareDose [facility]: Dose Right [facility]: Teradose 4D [facility]: [employer] RADIATION DOSE: CT Rad equipment meets quality standard of care and radiation dose reduction techniq ues were employed. CTDIvol: 5.2 mGy. DLP: 278 mGy-cm.mGy. LIMITATIONS: None. FINDINGS: LOWER CHEST: No significant findings. No nodules or infiltrates. NON-CONTRASTED LIVER, SPLEEN, ADRENALS: Evaluation limited by lack of IV contrast. No identified sign ificant masses. PANCREAS: No masses. No peripancreatic inflammatory changes. GALLBLADDER: No calcified stones. No inflammatory changes to suggest cholecystitis. RIGHT KIDNEY AND URETER: No cysts identified. No solid masses. No calcified stones. No hydronephrosis or hydroureter. LEFT KIDNEY AND URETER: No cysts identified. No solid masses. 2 mm calcified stone in the bladder po rtion of the distal left ureter with mild hydronephrosis - hydroureter. AORTA AND RETROPERITONEUM: No aneurysm. No retroperitoneal masses or adenopathy. BOWEL AND PERITONEAL CAVITY: No obvious masses or inflammatory changes. No free fluid. APPENDIX: Normal. PELVIS, BLADDER, AND ABDOMINAL WALL:No abnormal masses. No free fluid. Unremarkable bladder. BONES: No acute findings. Old mild compression deformity of the L1 vertebral body. OTHER: No other significant finding. IMPRESSION: 2 mm calcified stone in the bladder portion of the distal left ureter with mild hydronep hrosis - hydroureter. TECHNICAL DOCUMENTATION: JOB ID: [id number] [place]-72 Quality ID # [id number]: Final reports with documentation of one or more dose reduction techniques (e.g., Au tomated exposure control, adjustment of the mA and/or kV according to patient size, use of iterative reconstruction technique) 2010 [employer]- All Rights Reserved Reading location - IP/workstation name: [email or web address]
[2018-04-23] MEDS ORDERED: ONDANSETRON ODT 4 MG TAB (6 TAB/ER DISP) PO PRN (17:18)
[2018-04-23 17:29] VITALS: BP 113/71
== END 2018-04-23 17:29 | disposition home or self-care (01) ==
LOC: ER 14:10
DX: N20.0 Calculus of kidney (principal); R31.9 Hematuria, unspecified; D72.829 Elevated white blood cell count, unspecified; R10.9 Unspecified abdominal pain; R50.9 Fever, unspecified; R10.30 Lower abdominal pain, unspecified; R35.0 Frequency of micturition
CPT/HCPCS: 99284; 96361; 96374; 36415; 85025; 80053; 81001; 74176; J1885; J7030

== ENCOUNTER 2018-11-01 17:06 | Emergency (ER) | payer SELFPAY ==
[2018-11-01 17:12] VITALS: BP 125/78
[2018-11-01] MEDS ORDERED: DIPHENOXYLATE HCL/ATROP SULF 2.5-0.025 MG TABLET PO ONE (17:27)
[2018-11-01] MEDS ORDERED: NORMAL SALINE 1000 ML 1,000 ML IV ONE (17:27)
[2018-11-01] MEDS ORDERED: ONDANSETRON HCL 8 MG TABLET PO ONE (17:28)
--- NOTE | 2018-11-01 17:31 | ER Document Report ---
ED Medical Screen (RME) - General Chief Complaint: Abdominal Pain Stated Complaint: DIARRHEA Time Seen by Provider: 11/01/18 17:26 Mode of Arrival: Ambulatory Information source: Patient Notes: 38-year-old male presented to ED for complaint of diarrhea for the last 48 hours. He states he has had some any stools that he has no idea how many. He states he is also been nauseated with a fever but has not checked his temperature. He has also had cold sweats and thinks he has some blood in his stool. He states every time he eats or drinks anything more than ice chips he has a stool. Patient is alert oriented respirations regular and unlabored speaking in full sentences walks with even steady gait. 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 He is also had a history of anxiety and depression thoracic vertebrae fractures clavicle fractures ankle and leg fractures he has rods and screws in his leg. He is alert oriented respirations regular and unlabored speaking in full sentences walks with even steady gait. I have greeted and performed a rapid initial assessment of this patient. A comprehensive ED assessment and evaluation of the patient, analysis of test results and completion of medical decision making process will be conducted by an additional ED providers. TRAVEL OUTSIDE OF THE [place] IN LAST 30 DAYS: No - Related Data Allergies/Adverse Reactions: methylphenidate HCl [From Ritalin] Adverse Reaction (Verified 11/01/18 17:07) Past Medical History - Social History Frequency of alcohol use: None Drug Abuse: None - Past Medical History Cardiac Medical History: Denies: Hx Coronary Artery Disease, Hx Heart Attack, Hx Hypertension Pulmonary Medical History: Denies: Hx Asthma, Hx Bronchitis, Hx COPD, Hx Pneumonia Neurological Medical History: Denies: Hx Cerebrovascular Accident, Hx Seizures Renal/ Medical History: Denies: Hx Peritoneal Dialysis Musculoskeltal Medical History: Denies Hx Arthritis Psychiatric Medical History: Reports: Hx Attention Deficit Hyperactivity Disorder Past Surgical History: Reports: Hx Orthopedic Surgery - L leg - Immunizations Hx Diphtheria, Pertussis, Tetanus Vaccination: Yes Physical Exam - Vital signs Vitals: Temp Pulse Resp BP Pulse Ox 97.9 F 126 H 17 125/78 96 11/01/18 17:11 11/01/18 17:11 11/01/18 17:11 11/01/18 17:11 11/01/18 17:11 Course - Vital Signs Vital signs: Temp Pulse Resp BP Pulse Ox 97.9 F 126 H 17 125/78 96 11/01/18 17:11 11/01/18 17:11 11/01/18 17:11 11/01/18 17:11 11/01/18 17:11
[2018-11-01 18:20] LABS: ABSOLUTE LYMPHOCYTES (AUTO) 0.8 10^3/uL (0.5-4.7); ABSOLUTE MONOCYTES (AUTO) 0.9 10^3/uL (0.1-1.4); ABSOLUTE NEUT (AUTO) 7.1 10^3/uL (1.7-8.2); BASOPHILS % (AUTO) 0.6 % (0-2); EOSINOPHILS % (AUTO) 0.2 % (0-6); HEMATOCRIT 50.5 % (37.9-51.0); HEMOGLOBIN 16.6 g/dL (13.5-17.0); LYMPHOCYTES % (AUTO) 8.7 % (13-45); MEAN CORPUSCULAR HGB CONC 32.8 g/dL (32.0-36.0); MEAN CORPUSCULAR VOLUME 83 fl (80-97); MONOCYTES % (AUTO) 9.7 % (3-13); PLATELET COUNT 205 10^3/uL (150-450); RED BLOOD COUNT 6.13 10^6/uL (4.35-5.55); RED CELL DISTRIBUTION WIDTH 13.7 % (11.5-14.0); SEGMENTED NEUTROPHILS % (AUTO) 80.8 % (42-78); TOTAL CELLS COUNTED % (AUTO) 100 %; WHITE BLOOD COUNT 8.8 10^3/uL (4.0-10.5)
[2018-11-01 18:23] LABS: APPEARANCE,URINE SLIGHTLY-CLOUDY; BILIRUBIN,URINE NEGATIVE (NEGATIVE); GLUCOSE, URINE NEGATIVE (NEGATIVE); KETONES,URINE 20 mg/dL (NEGATIVE); LEUKOCYTE ESTERASE,URINE NEGATIVE (NEGATIVE); NITRITE,URINE NEGATIVE (NEGATIVE); PROTEIN,URINE 100 mg/dL (NEGATIVE); URINE SPECIFIC GRAVITY 1.033
[2018-11-01 18:24] LABS: COLOR,URINE YELLOW
[2018-11-01 18:31] LABS: URINE AMPHETAMINES SCREEN UNCONFIRMED POSITIVE; URINE BARBITURATES SCREEN NEGATIVE; URINE BENZODIAZEPINES SCREEN NEGATIVE; URINE COCAINE SCREEN UNCONFIRMED POSITIVE; URINE MARIJUANA (THC) SCREEN UNCONFIRMED POSITIVE; URINE METHADONE SCREEN NEGATIVE; URINE PHENCYCLIDINE SCREEN NEGATIVE
[2018-11-01 18:32] LABS: ALBUMIN 5.5 g/dL (3.5-5.0); ALKALINE PHOSPHATASE 143 U/L (38-126); ANION GAP 14 (5-19); ASPARTATE AMINO TRANSFERASE 23 U/L (17-59); BILIRUBIN,DIRECT 0.3 mg/dL (0.0-0.4); BILIRUBIN,TOTAL 0.6 mg/dL (0.2-1.3); BLOOD UREA NITROGEN 15 mg/dL (7-20); CARBON DIOXIDE 29 mmol/L (22-30); CHLORIDE 98 mmol/L (98-107); GLUCOSE 91 mg/dL (75-110); POTASSIUM 4.1 mmol/L (3.6-5.0); TOTAL PROTEIN 9.3 g/dL (6.3-8.2)
[2018-11-01 18:38] LABS: CALCIUM 11.9 mg/dL (8.4-10.2)
--- NOTE | 2018-11-01 19:02 | ER Document Report ---
ED General - General Chief Complaint: Abdominal Pain Stated Complaint: DIARRHEA Time Seen by Provider: 11/01/18 17:26 Mode of Arrival: Ambulatory Notes: Patient is a 38-year-old male presents to the emergency department for generalized diarrhea. Patient states he has had over 20 episodes of diarrhea in the last 48 hours. States the last couple of episodes he noticed a darker brown with a reddish tinge. Patient states he did try 1 dose of Imodium as well as 1 dose of Pepto-Bismol in the last 48 hours. Patient is denying any vomiting states he does have intermittent episodes of nausea. Patient states he has intermittent lower abdominal cramping but currently is abdominal pain-free. Patient is denying any dysuria or back pain. Past medical history: ADHD, depression Medications: Lexapro, Adderall Allergies: Methylphenidate TRAVEL OUTSIDE OF THE [place] IN LAST 30 DAYS: No - Related Data Allergies/Adverse Reactions: methylphenidate HCl [From Ritalin] Adverse Reaction (Verified 11/01/18 17:07) Past Medical History - General Information source: Patient - Social History Smoking Status: Former Smoker Frequency of alcohol use: None Drug Abuse: None Family History: None Patient has suicidal ideation: No Patient has homicidal ideation: No - Past Medical History Cardiac Medical History: Denies: Hx Coronary Artery Disease, Hx Heart Attack, Hx Hypertension Pulmonary Medical History: Denies: Hx Asthma, Hx Bronchitis, Hx COPD, Hx Pneumonia Neurological Medical History: Denies: Hx Cerebrovascular Accident, Hx Seizures Renal/ Medical History: Denies: Hx Peritoneal Dialysis Musculoskeletal Medical History: Denies Hx Arthritis Psychiatric Medical History: Reports: Hx Attention Deficit Hyperactivity Disorder Past Surgical History: Reports: Hx Orthopedic Surgery - L leg - Immunizations Hx Diphtheria, Pertussis, Tetanus Vaccination: Yes Review of Systems - Review of Systems Constitutional: denies: Fever EENT: No symptoms reported Cardiovascular: No symptoms reported Respiratory: No symptoms reported Gastrointestinal: See HPI Genitourinary: No symptoms reported Male Genitourinary: No symptoms reported Musculoskeletal: No symptoms reported Skin: No symptoms reported Hematologic/Lymphatic: No symptoms reported Neurological/Psychological: No symptoms reported Physical Exam - Vital signs Vitals: Temp Pulse Resp BP Pulse Ox 97.9 F 126 H 17 125/78 96 11/01/18 17:11 11/01/18 17:11 11/01/18 17:11 11/01/18 17:11 11/01/18 17:11 - Notes Notes: GENERAL: Alert, interacts well. No acute distress. HEAD: Normocephalic, atraumatic. EYES: Pupils equal, round, and reactive to light. Extraocular movements intact. ENT: Oral mucosa moist, tongue midline. NECK: Full range of motion. Supple. Trachea midline. LUNGS: Clear to auscultation bilaterally, no wheezes, rales, or rhonchi. No respiratory distress. HEART: Regular rate and rhythm. No murmur ABDOMEN: Soft, non-tender. Non-distended. Bowel sounds present in all 4 quadrants. No McBurney's point tenderness, no Fabian sign noted. EXTREMITIES: Moves all 4 extremities spontaneously. No edema, normal radial and dorsalis pedis pulses bilaterally. No cyanosis. BACK: no cervical, thoracic, lumbar midline tenderness. No saddle anesthesia, normal distal neurovascular exam. No CVA tenderness noted bilaterally NEUROLOGICAL: Alert and oriented x3. Normal speech. cranial nerves II through XII grossly intact PSYCH: Normal affect, normal mood. SKIN: Warm, dry, normal turgor. No rashes or lesions noted. Course - Re-evaluation Re-evalutation: 11/01/18 18:59 Laboratory 11/01/18 11/01/18 11/01/18 17:50 17:50 17:50 WBC 8.8 RBC 6.13 H Hgb 16.6 Hct 50.5 MCV 83 MCH 27.0 MCHC 32.8 RDW 13.7 Plt Count 205 Lymph % (Auto) 8.7 L [place] % (Auto) 9.7 Eos % (Auto) 0.2 Baso % (Auto) 0.6 Absolute Neuts (auto) 7.1 Absolute Lymphs (auto) 0.8 Absolute Monos (auto) 0.9 Absolute Eos (auto) 0.0 Absolute Basos (auto) 0.0 Seg Neutrophils % 80.8 H Sodium 141.2 Potassium 4.1 Chloride 98 Carbon Dioxide 29 Anion Gap 14 BUN 15 Creatinine 1.13 Est GFR ( Amer) > 60 Est GFR (MDRD) Non-Af > 60 Glucose 91 Calcium 11.9 H Total Bilirubin 0.6 Direct Bilirubin 0.3 Neonat Total Bilirubin Not Reportable Neonat Direct Bilirubin Not Reportable Neonat Indirect Bili Not Reportable AST 23 ALT 12 Alkaline Phosphatase 143 H Total Protein 9.3 H Albumin 5.5 H Urine Color YELLOW Urine Appearance SLIGHTLY-CLOUDY Urine pH 5.0 Ur Specific [place] 1.033 Urine Protein 100 H Urine Glucose (UA) NEGATIVE Urine Ketones 20 H Urine Blood SMALL H Urine Nitrite NEGATIVE Urine Bilirubin NEGATIVE Urine Urobilinogen 2.0 H Ur Leukocyte Esterase NEGATIVE Urine WBC (Auto) 4 Urine RBC (Auto) 3 U Hyaline Cast (Auto) 4 Urine Bacteria (Auto) TRACE Squamous Epi Cells Auto 1 Urine Mucus (Auto) MANY Urine Ascorbic Acid NEGATIVE Urine Opiates Screen Urine Methadone Screen Ur Barbiturates Screen Ur Phencyclidine Scrn Ur Amphetamines Screen U Benzodiazepines Scrn Urine Cocaine Screen U Marijuana (THC) Screen 11/01/18 17:50 WBC RBC Hgb Hct MCV MCH MCHC RDW Plt Count Lymph % (Auto) [place] % (Auto) Eos % (Auto) Baso % (Auto) Absolute Neuts (auto) Absolute Lymphs (auto) Absolute Monos (auto) Absolute Eos (auto) Absolute Basos (auto) Seg Neutrophils % Sodium Potassium Chloride Carbon Dioxide Anion Gap BUN Creatinine Est GFR ( Amer) Est GFR (MDRD) Non-Af Glucose Calcium Total Bilirubin Direct Bilirubin Neonat Total Bilirubin Neonat Direct Bilirubin Neonat Indirect Bili AST ALT Alkaline Phosphatase Total Protein Albumin Urine Color Urine Appearance Urine pH Ur Specific [place] Urine Protein Urine Glucose (UA) Urine Ketones Urine Blood Urine Nitrite Urine Bilirubin Urine Urobilinogen Ur Leukocyte Esterase Urine WBC (Auto) Urine RBC (Auto) U Hyaline Cast (Auto) Urine Bacteria (Auto) Squamous Epi Cells Auto Urine Mucus (Auto) Urine Ascorbic Acid Urine Opiates Screen NEGATIVE Urine Methadone Screen NEGATIVE Ur Barbiturates Screen NEGATIVE Ur Phencyclidine Scrn NEGATIVE Ur Amphetamines Screen UNCONFIRMED POSITIVE U Benzodiazepines Scrn NEGATIVE Urine Cocaine Screen UNCONFIRMED POSITIVE U Marijuana (THC) Screen UNCONFIRMED POSITIVE Patient's abdominal exam is benign. Patient states he overall feels a lot better after treatments in the emergency department. Patient was given fluid in the ED. At this time will discharge with return precautions and follow-up recommendations. Verbal discharge instructions given a the bedside and opportunity for questions given. Medication warnings reviewed. Patient is in agreement with this plan and has verbalized understanding of return precautions and the need for primary care follow-up in the next 24-72 hours. This medical record was dictated with voice recognizing software. There may be grammatical, syntax errors that are unintended. 11/01/18 19:12 Stool analysis was ordered by E provider. Patient has had no episodes of diarrhea while in the emergency department. Discussed stool analysis with prima care provider. Patient wishes to follow-up with primary care provider. - Vital Signs Vital signs: Temp Pulse Resp BP Pulse Ox 97.9 F 112 H 17 125/78 96 11/01/18 17:11 11/01/18 17:31 11/01/18 17:11 11/01/18 17:11 11/01/18 17:11 - Laboratory Result Diagrams: 11/01/18 17:50 11/01/18 17:50 Laboratory results interpreted by me: 11/01/18 11/01/18 11/01/18 17:50 17:50 17:50 RBC 6.13 H Lymph % (Auto) 8.7 L Seg Neutrophils % 80.8 H Calcium 11.9 H Alkaline Phosphatase 143 H Total Protein 9.3 H Albumin 5.5 H Urine Protein 100 H Urine Ketones 20 H Urine Blood SMALL H Urine Urobilinogen 2.0 H Discharge - Discharge Clinical Impression: Diarrhea Qualifiers: Diarrhea type: unspecified type Qualified Code(s): R19.7 - Diarrhea, unspecified Condition: Stable Disposition: HOME, SELF-CARE Instructions: Diarrhea, Nonspecific ([facility]) Additional Instructions: As we discussed you have been seen and treated in the emergency department for generalized diarrhea. You should follow-up with your primary care provider in the next 24 to 48 hours. Please return to the emergency room for any further concerns. Prescriptions: Dicyclomine HCl [Bentyl 20 mg Tablet] 20 mg PO QID #40 tablet
== END 2018-11-01 19:15 | disposition home or self-care (01) ==
LOC: ER 17:06
DX: R19.7 Diarrhea, unspecified (principal); R19.5 Other fecal abnormalities; R11.0 Nausea; R10.30 Lower abdominal pain, unspecified; F90.9 Attention-deficit hyperactivity disorder, unspecified type; F32.9 Major depressive disorder, single episode, unspecified; Z79.899 Other long term (current) drug therapy; Z87.891 Personal history of nicotine dependence
CPT/HCPCS: 36415; 85025; 80053; 81001; 80307; J3490; S0119; J7030; 87086